=== PATIENT | female | born 1980 | race Caucasian/White ===

== ENCOUNTER 2017-10-29 20:41 | Outpatient (CLI) | payer MEDICAID ==
[~2017-10-29] VITALS: Ht 152.4 cm; Wt 72.4 kg
[~2017-10-29 20:41] MED LIST: FERR325C; PREN1TAB49
[2017-10-29 21:20] VITALS: BP 93/55; PULSE 82; RESP 18
--- NOTE | 2017-10-29 22:26 | RADRPT ---
AMENDMENT: 10/29/2017 10:53:24 PM Johnnie Kamara PROCEDURE: US OB limited. CLINICAL INDICATION: Decreased movement. Amniotic fluid index TECHNIQUE: Multiple sonographic images of the pelvis were obtained. The images were reviewed on a PACS workstation. COMPARISON: None FINDINGS: There is a single live intrauterine , in breech presentation. A normal heart rate is identified measuring 152 beats per minute. Amniotic fluid index maximal vertebral pocket measures 4. 5 cm. The placenta is grade 1, located anteriorly. IMPRESSION: 1. Single live intrauterine in breech presentation with normal heart rate of 152 bpm . 2. The placenta is grade 1, located anteriorly. No evidence of previa or abruption at this time. 3. Amniotic fluid index maximal vertical pocket measures 4.5 cm. RPTAT: AAPP PROCEDURE: US OB limited. CLINICAL INDICATION: Decreased movement TECHNIQUE: Multiple sonographic images of the pelvis were obtained. The images were reviewed on a PACS workstation. COMPARISON: None FINDINGS: There is a single live intrauterine , in breech presentation. A normal heart rate is identified measuring 152 beats per minute. Amniotic fluid index appears to be within limits. The jody centa is grade 1, located anteriorly. IMPRESSION: 1. Single live intrauterine in breech presentation with normal heart rate of 152 bpm . 2. The placenta grade 1, located anteriorly. No evidence of previa or abruption at this time. RPTAT: AAP Physician Ingrid Date Time Electronically viewed and signed by Physician Ingrid on 10/29/2017 22:53 /
--- NOTE | 2017-10-29 22:59 | PN ---
Triage Information Date/Time October 29, 2017 Reason for visit: DFHR Weeks of Gestation 22 weeks and 4 days /Para 4 para 3 Diabetes: none Hypertention: none Additional information 37-year-old with IUP at 22 weeks and 4 days presented with complaint of not feeling movement. She denies any other complaints. She denies any leaking of fluid, vaginal bleeding or contractions. Denies any complications during her antepartum course Objective Vital Signs Date Time Temp Pulse Resp B/P Pulse Ox O2 Delivery O2 Flow Rate FiO2 10/29/17 21:20 98.2 82 18 93/55 Room Air Heart Rate: 130's Contractions: None Results/Medications Imaging Results PROCEDURE: US OB limited. CLINICAL INDICATION: Decreased movement TECHNIQUE: Multiple sonographic images of the pelvis were obtained. The images were reviewed on a PACS workstation. COMPARISON: None FINDINGS: There is a single live intrauterine , in breech presentation. A normal heart rate is identified measuring 152 beats per minute. Amniotic fluid index appears to be within limits. The placenta is grade 1, located anteriorly. IMPRESSION: 1. Single live intrauterine in breech presentation with normal heart rate of 152 bpm. 2. The placenta grade 1, located anteriorly. No evidence of previa or abruption at this time. Disposition: Discharge Assessment/Plan IUP at 22 weeks and 4 days Not feeling movement Patient reports has been feeling movement since she presented to triage after hydration No evidence of labor, PPROM Normal amniotic fluid noted Patient was reassured NST appropriate for gestational age DC home Follow-up with primary OB within 24-48 hours or sooner as needed Patient verbalized understanding NORMA ACOSTA MD Oct 29, 2017 22:59
== END 2017-10-29 23:19 | disposition home or self-care (01) ==
LOC: OBT 20:41 → L-D 20:43 → OBT 23:19
PROVIDERS: ATTEND Obstetrics & Gynecology
DX: O36.8120 Decreased fetal movements, second trimester, not applicable or unspecified (principal); O09.522 Supervision of elderly multigravida, second trimester; O32.1XX0 Maternal care for breech presentation, not applicable or unspecified; Z3A.22 22 weeks gestation of pregnancy
CPT/HCPCS: 76815; Z7500; G0463

== ENCOUNTER 2017-11-01 06:06 | Outpatient (CLI) | payer MEDICAID ==
[2017-11-01 06:38] VITALS: BP 122/67; PULSE 105; RESP 18
[2017-11-01 08:09] LABS: BASOPHILS % 0.2 % (0.0-2.0); EOSINOPHILS # 0.1 10^3/ul (0.0-0.5); EOSINOPHILS % 1.1 % (0.0-7.0); HEMATOCRIT 29.9 % (37.0-47.0); HEMOGLOBIN 10.5 g/dl (12.0-16.0); LYMPHOCYTES # 1.2 10^3/ul (0.8-2.9); LYMPHOCYTES % 13.8 % (15.0-51.0); MEAN CORPUSCULAR HEMOGLOBIN 31.5 pg (29.0-33.0); MEAN CORPUSCULAR HGB CONC 35.1 g/dl (32.0-37.0); MEAN CORPUSCULAR VOLUME 89.8 fl (82.0-101.0); MEAN PLATELET VOLUME 10.8 fl (7.4-10.4); MONOCYTE # 0.7 10^3/ul (0.3-0.9); MONOCYTES % 7.5 % (0.0-11.0); NEUTROPHIL # 6.7 10^3/ul (1.6-7.5); NEUTROPHILS % 76.8 % (39.0-77.0); PLATELET COUNT 193 10^3/UL (140-415); RED BLOOD COUNT 3.33 10^6/ul (4.20-5.40); RED CELL DISTRIBUTION WIDTH 12.5 % (11.5-14.5); WHITE BLOOD COUNT 8.8 10^3/ul (4.8-10.8)
[2017-11-01 08:21] LABS: ADD UMIC YES; UR ASCORBIC ACID NEGATIVE (NEGATIVE); UR BACTERIA FEW /HPF (NONE SEEN); UR BILIRUBIN (Dip) NEGATIVE (NEGATIVE); UR BLOOD (Dip) NEGATIVE (NEGATIVE); UR CLARITY CLOUDY (CLEAR); UR COLOR YELLOW (YELLOW); UR GLUCOSE (Dip) 3+ mg/dL (NEGATIVE); UR KETONES (Dip) TRACE mg/dL (NEGATIVE); UR LEUKOCYTE ESTERASE (Dip) 3+ Leu/ul (NEGATIVE); UR MUCUS FEW /HPF (NONE SEEN); UR NITRITE (Dip) NEGATIVE (NEGATIVE); UR RBC 1 /HPF (0-5); UR SQUAMOUS EPITHELIAL CELL MODERATE /HPF (FEW); UR TOTAL PROTEIN (Dip) 1+ mg/dl (NEGATIVE); UR UROBILINOGEN (Dip) NEGATIVE (NEGATIVE)
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
[2017-11-01 08:41] LABS: INR 0.97
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
[2017-11-01 08:42] LABS: PARTIAL THROMBOPLASTIN TIME 26.6 Sec (25.0-35.0)
[2017-11-01 08:43] LABS: THROMBIN TIME 13.5 SEC (13.8-19.1)
[2017-11-01 08:48] LABS: D-DIMER 1559.88 ng/ml (<460)
[2017-11-01 08:59] LABS: PLATELET COUNT 193 10^3/UL (140-440)
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
[2017-11-01] MEDS ORDERED: NEOM28OI TP (11:08)
[2017-11-01] MEDS ORDERED: ACET500C5 PO (11:08)
== END 2017-11-01 08:55 | disposition home or self-care (01) ==
LOC: OBT 06:06 → L-D 06:11 → OBT 08:55
PROVIDERS: ATTEND Obstetrics & Gynecology
DX: O26.892 Other specified pregnancy related conditions, second trimester (principal); Z3A.23 23 weeks gestation of pregnancy; R10.9 Unspecified abdominal pain
CPT/HCPCS: 36415; 76815; 81001; 85025; 85049; 85362; 85378; 85384; 85460; 85610; 85670; 85730; 86850; 86900; 86901; Z7500; G0463

== ENCOUNTER 2017-11-01 08:55 | Emergency (ER) | payer MEDICAID ==
[~2017-11-01] VITALS: Ht 152.4 cm; Wt 70.0 kg
[2017-11-01 09:02] VITALS: Ht 152.4 cm; Wt 70.0 kg
[2017-11-01] MEDS ORDERED: ACETAMINOPHEN 500 MG TAB PO STA (10:52)
[2017-11-01] MEDS ORDERED: ACET500C5 PO (11:08)
[2017-11-01] MEDS ORDERED: NEOM28OI TP (11:08)
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
== END 2017-11-01 11:57 | disposition home or self-care (01) ==
LOC: FTE 08:55
DX: O26.892 Other specified pregnancy related conditions, second trimester (principal); R10.30 Lower abdominal pain, unspecified; Z3A.22 22 weeks gestation of pregnancy
CPT/HCPCS: Z7502; Z7610; 99283

== ENCOUNTER 2018-02-18 14:09 | Outpatient (CLI) | END 2018-02-18 18:10 | disposition home or self-care (01) ==

== ENCOUNTER 2018-02-23 09:55 | Inpatient (IN) | END 2018-02-26 13:45 | disposition home or self-care (01) | DRG 767 ==

== ENCOUNTER 2018-02-26 22:26 | Emergency (ER) | END 2018-02-27 03:07 | disposition home or self-care (01) ==